=== PATIENT | female | born 1960 | race Caucasian/White ===

== ENCOUNTER 2017-04-22 08:00 | Day surgery (SDC) | payer BC ==
[~2017-04-22 08:00] MED LIST: Lactated Ringers 1,000 ML IV SCH; Midazolam 1 MG/ML 2 ML SDV ONE; Propofol 200 MG/20 ML SDV ONE; Sodium Chloride 0.9% 10 ML Syringe FLUSH PRN; Sodium Chloride 0.9% 2.5 ML Syringe FLUSH PRN
--- NOTE | 2017-04-22 08:28 | PCM.PREANE ---
Preanesthetic Assessment - Anesthesia/Transfusion/Family Hx Anesthesia History: Prior Anesthesia Without Reaction Other Type of Anesthesia Reaction Comment: Denies any known problem with anesthesia in the past. Family History of Anesthesia Reaction: No Transfusion History: No Prior Transfusion(s) Intubation History: Unknown - Review of Systems General: No Symptoms Pulmonary: No Symptoms Cardiovascular: No Symptoms Gastrointestinal: No Symptoms, Other (h/o colon cancer) Neurological: No Symptoms, Change in Speech - Physical Assessment O2 Sat by Pulse Oximetry: 98 Respiratory Rate: 16 Vital Signs: Last Vital Signs Temp 36.6 C 04/22/17 08:06 Pulse 88 04/22/17 08:06 Resp 16 04/22/17 08:06 BP 144/63 H 04/22/17 08:06 Pulse Ox 98 04/22/17 08:06 Height: 1.7 m Weight: 111.584 kg ASA Class: 2 Mental Status: Alert & Oriented x3 Airway Class: Mallampati = 2 Dentition: Reports: Normal Dentition (protruding teeth) Thyro-Mental Finger Breadths: 2 Mouth Opening Finger Breadths: 3 ROM/Head Extension: Full Lungs: Clear to Auscultation, Normal Respiratory Effort Cardiovascular: Regular Rate, Regular Rhythm - Allergies Allergies/Adverse Reactions: Allergies Allergy/AdvReac Type Severity Reaction Status Date / Time Sulfa (Sulfonamide Allergy Anaphylactic Verified 04/20/17 08:49 Antibiotics) Shock - Blood Blood Available: No - Anesthesia Plan Pre-Op Medication Ordered: None - Acknowledgements Anesthesia Type Planned: MAC Pt an Appropriate Candidate for the Planned Anesthesia: Yes Alternatives and Risks of Anesthesia Discussed w Pt/Guardian: Yes Pt/Guardian Understands and Agrees with Anesthesia Plan: Yes PreAnesthesia Questionnaire - Past Health History Medical/Surgical History: Denies Medical/Surgical History HEENT History: Reports: Impaired Vision, Other (See Below) Other HEENT History: wears glasses for driving Cardiovascular History: Reports: None Respiratory History: Reports: None Gastrointestinal History: Reports: Other (See Below) Other Gastrointestinal History: hx of colon cancer '11 with colon resection and primary anastomosis Genitourinary History: Reports: None 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: , Other (See Below) Other OB/BYN History: hx of Endometrial Cancer 1A (s/p vaginal hysterectomy) Musculoskeletal History: Reports: Fracture Other Musculoskeletal History: fx left wrist, ?foot Neurological History: Reports: None, Other (See Below) (h/o migraines) Psychiatric History: Reports: None, Other (See Below) (h/o anxiety/depression) Endocrine/Metabolic History: Reports: Obesity/BMI 30+ (BMI 38.5) Hematologic History: Reports: Anemia, Other (See Below) Other Hematologic History: states was diagnosed "yrs ago with mild thrombocytopenia" Immunologic History: Reports: None Oncologic (Cancer) History: Reports: Colon, Uterine Dermatologic History: Reports: None - Past Surgical History Head Surgeries/Procedures: Reports: None HEENT Surgical History: Reports: None Cardiovascular Surgical History: Reports: None Respiratory Surgical History: Reports: None GI Surgical History: Reports: Appendectomy, Colon (resection), Colonoscopy ( multiple), Hernia, Inguinal Other GI Surgeries/Procedures: Partial Colectomy Female Surgical History: Reports: Section (x3), Hysterectomy Endocrine Surgical History: Reports: None Neurological Surgical History: Reports: None Musculoskeletal Surgical History: Reports: None Oncologic Surgical History: Reports: Other (See Below) Other Oncologic Surgeries/Procedures: Partial Colectomy, LAVH Dermatological Surgical History: Reports: None - SUBSTANCE USE Smoking Status *Q: Former Smoker Days Per Week of Alcohol Use: 1 Number of Drinks Per Day: 3 Total Drinks Per Week: 3 Recreational Drug Use History: No - HOME MEDS Home Medications: Home Meds Psyllium Husk [Fiber] 12 gram PO DAILY 12/12/13 [History] Cholecalciferol (Vitamin D3) [Vitamin D3] 2 tab PO DAILY 10/12/14 [History] Multivitamin [Multivitamins] 1 tab PO DAILY 11/30/14 [History] Polyethylene Glycol 3350 [MiraLAX] 1 dose PO DAILY 11/12/15 [History] Ascorbic Acid [Vitamin C] 1,000 mg PO BID 04/20/17 [History] Calcium Carb/Magnesium Oxid/D3 [Calcium Magnesium + D] 1 tab PO DAILY 04/20/17 [ History] L.acidoph,Paracasei, B.lactis [Probiotic] 1 tab PO DAILY 04/20/17 [History] Multivitamin with Minerals [Hair, Skin and Nails] 1 tab PO DAILY 04/20/17 [ History] Potassium Gluconate [Potassium] 1 tab PO DAILY 04/20/17 [History] Vitamin B Complex 1 tab PO BID 04/20/17 [History] - CURRENT (IN HOUSE) MEDS Current Meds: Current Medications Lactated Ringer's (Ringers, Lactated) 1,000 mls @ 125 mls/hr IV ASDIRECTED TALI Last Admin: 04/22/17 08:11 Dose: 125 mls/hr Sodium Chloride (Saline Flush) 10 ml FLUSH ASDIRECTED PRN PRN Reason: Keep Vein Open Sodium Chloride (Saline Flush) 2.5 ml FLUSH ASDIRECTED PRN PRN Reason: Keep Vein Open Discontinued Medications Lidocaine HCl (Xylocaine-Mpf 1%) Confirm Administered Dose 5 ml .ROUTE .STK-MED ONE Stop: 04/22/17 07:17 Midazolam HCl (Versed 1 Mg/Ml) Confirm Administered Dose 2 mg .ROUTE .STK-MED ONE Stop: 04/22/17 07:17 Propofol (Diprivan 20 Ml) Confirm Administered Dose 400 mg .ROUTE .STK-MED ONE Stop: 04/22/17 07:17
--- NOTE | 2017-04-22 10:09 | PCM.POSTAN ---
POST ANESTHESIA ASSESSMENT - MENTAL STATUS Mental Status: Alert, Oriented - RESPIRATORY Respiratory Status: Respiratory Rate WNL, Airway Patent, O2 Saturation Stable - CARDIOVASCULAR CV Status: Pulse Rate WNL - GASTROINTESTINAL GI Status: No Symptoms - PAIN Pain Score: 0 - POST OP HYDRATION Hydration Status: Adequate & Stable - OBSERVATIONS Free Text/Narrative:: no anesthesia problems
[2017-04-22 10:23] VITALS: BP 115/61
--- NOTE | 2017-04-22 10:33 | PCM.OPNOTE ---
- General Post-Op/Procedure Note Date of Surgery/Procedure: 04/22/17 Operative Procedure(s): Colonoscopy Findings: Normal appearing anastamotic line. No evidence of polyps or masses. Pre Op Diagnosis: History of colon cancer Post-Op Diagnosis: same Anesthesia Technique: MAC Primary Surgeon: Jazmin Jones Condition: Good Free Text/Narrative:: Intake & Output 04/21/17 04/22/17 04/22/17 22:59 06:59 14:59 Intake Total 400 Balance 400
--- NOTE | 2017-04-22 19:01 | OR ---
SURGEON: JAZMIN JONES MD DATE OF PROCEDURE: 04/22/2017 PREOPERATIVE DIAGNOSIS: History of colon cancer. POSTOPERATIVE DIAGNOSIS: History of colon cancer. PROCEDURE PERFORMED: Diagnostic colonoscopy. ENDOSCOPIST: Dr. Jazmin Jones. INSTRUMENT USED: Olympus colonoscope. EXTENT OF EXAM: To the cecum. PREPARATION: Fair. LIMITATIONS: None. INDICATION FOR EXAMINATION: The patient is a 57-year-old female, who presents for repeat colonoscopy. She has a history of colon cancer with a genetic screening test that showed a gene that increases the risk for colon cancer. Because of this, she has had yearly colonoscopy since her original surgery. The patient and I discussed the procedure as well as expected perioperative course. We discussed the risks, including bleeding, infection, damage to surrounding structures, including perforation. The patient has had multiple biopsies done of the anastomotic site just to ensure that there has been no recurrence. We discussed performing this again. The patient verbalized understanding and wishes to proceed. PROCEDURE IN DETAIL: The patient was brought to the endoscopy suite and placed in the left lateral decubitus position. A time-out was completed verifying the patient's name, age, date of , allergies, and procedure to be performed. Monitored anesthesia care was induced and continuous oxygen was provided via nasal cannula throughout the procedure. After adequate sedation was achieved, the digital rectal exam was performed. This examination was within normal limits. A well lubricated colonoscope was inserted into the rectum and advanced under direct visualization to the level of the cecum. The cecum was identified by both visual and anatomic landmarks. A photograph was taken of the cecal cap, however, I was unable to retroflex the scope within the cecum. The scope was then straightened out and fully withdrawn while examining the color, texture, anatomy, and integrity of the mucosa from the cecum to the anal canal. The patient had no evidence of polyps. Her anastomotic line appeared well healed with no evidence of recurrence. A biopsy were taken of the anastomotic line to ensure that there was normal tissue. The scope was then brought into the rectum and retroflexed to allow visualization of the anal canal opening. This appeared normal and a photograph was taken. The scope was then straightened out and removed from the patient. The cecum to anus time was 10 minutes. The patient was taken to the PACU in stable condition. ENDOSCOPIC DIAGNOSIS: Normal colonoscopy. RECOMMENDATION: Follow up in clinic in 2 weeks. HUGO PAT /[id number]
== END 2017-04-22 10:38 | disposition home or self-care (01) ==
LOC: MW.SDS 08:00
PROVIDERS: ATTEND Surgery
PROC: 0DJD8ZZ Inspection of Lower Intestinal Tract, Via Natural or Artificial Opening Endoscopic (ICD-10-PCS; principal; 2017-04-22)
DX: Z12.11 Encounter for screening for malignant neoplasm of colon (principal); Z85.038 Personal history of other malignant neoplasm of large intestine; F45.8 Other somatoform disorders; L43.9 Lichen planus, unspecified; Z88.2 Allergy status to sulfonamides; Z79.899 Other long term (current) drug therapy; D64.9 Anemia, unspecified; F41.9 Anxiety disorder, unspecified; F32.9 Major depressive disorder, single episode, unspecified; Z90.49 Acquired absence of other specified parts of digestive tract; Z90.710 Acquired absence of both cervix and uterus; Z98.890 Other specified postprocedural states; Z87.891 Personal history of nicotine dependence
CPT/HCPCS: 45378; J2250; J7120; 88305; J2704

== ENCOUNTER 2018-02-10 14:10 | Emergency (ER) | payer BC ==
[2018-02-10 14:46] VITALS: BP 147/72
--- NOTE | 2018-02-10 14:53 | EDM.PDOC ---
ED HPI GENERAL MEDICAL PROBLEM - General Chief Complaint: Lower Extremity Injury/Pain Stated Complaint: RT LEG PAIN Time Seen by Provider: 02/10/18 14:15 Source of Information: Reports: Patient History Limitations: Reports: No Limitations - History of Present Illness INITIAL COMMENTS - FREE TEXT/NARRATIVE: HISTORY AND PHYSICAL: History of present illness: Patient is a 58-year-old female who presents to the emergency room today with complaints of right leg pain. She states that approximately one week ago she had someone spilled coffee on her and she bent over to reach for the cup with a flexed/straight leg and had immediate pain to the right posterior distal hamstring. Since that time she has had pins and needles and burning sensation when she engages the hamstring. She states she told some friends of this and they suggested her calm to the emergency room for evaluation. She did attempt to get in with her primary care provider but was unable to get in until tomorrow. She denies any numbness or tingling to the distal extremity. Denies any localized area of erythema or soft tissue swelling. She is ambulatory. States that pressure on the site or engaging the hamstring is when she feels the pain. Review of systems: As per history of present illness and below otherwise all systems reviewed and negative. Past medical history: As per history of present illness and as reviewed below otherwise noncontributory. Surgical history: As per history of present illness and as reviewed below otherwise noncontributory. Social history: No reported history of drug or alcohol abuse. Family history: As per history of present illness and as reviewed below otherwise noncontributory. Physical exam: General: HEENT: Atraumatic, normocephalic, pupils equal and reactive bilaterally, negative for conjunctival pallor or scleral icterus, mucous membranes moist, throat clear, neck supple, nontender, trachea midline. No drooling or trismus noted. No meningeal signs Lungs: Clear to auscultation, breath sounds equal bilaterally, chest nontender. Heart: S1S2, regular rate and rhythm without overt murmur Abdomen: Soft, nondistended, nontender. Negative for masses or hepatosplenomegaly. Negative for costovertebral tenderness. Pelvis: Stable nontender. Genitourinary: Deferred. Rectal: Deferred. Skin: Intact, warm, dry. No lesions or rashes noted. Extremities: Atraumatic, negative for cords or calf pain. Neurovascular unremarkable. Neuro: Awake, alert, oriented. Cranial nerves II through XII unremarkable. Cerebellum unremarkable. Motor and sensory unremarkable throughout. Exam nonfocal. Notes: Ultrasound shows no evidence of a DVT. There is likely a Zarate cyst noted upon examination. We'll provide the patient with an Raza wrap and offered crutches. Her describing the involvement of the hamstring when activated sounds like she may have a partial muscle tear or strain. This information was shared with the patient. She states she did take some leftover diclofenac which seemed to help her discomfort. Diclofenac 75 mg twice a day has been prescribed. We discussed appropriate follow-up with the orthopedic provider for further evaluation and management. She is agreeable to plan of care. Denies any further questions or concerns at this time. Diagnostics: Right lower extremity Therapeutics: Raza wrap, crutches Impression: Zarate cyst, right Muscle Strain, right hamstring Plan: 1. No evidence of DVT. Small zarate cyst behind the right knee (use raza wrap as directed) 2. Tylenol as needed for pain and discomfort. A prescription for diclofenac has been given to you. With food and do not take any additional NSAID's such as ibuprofen or Aleve with this medication. 3. He is follow-up with the orthopedic provider. Return to the ED as needed and as discussed. Definitive disposition and diagnosis as appropriate pending reevaluation and review of above. Right Upper Posterior Leg Pain Score (Numeric/FACES): 6 - Related Data Allergies Allergy/AdvReac Type Severity Reaction Status Date / Time Sulfa (Sulfonamide Allergy Anaphylactic Verified 02/10/18 14:41 Antibiotics) Shock Home Meds: Home Meds Psyllium Husk [Fiber] 12 gram PO DAILY 12/12/13 [History] Cholecalciferol (Vitamin D3) [Vitamin D3] 2 tab PO DAILY 10/12/14 [History] Multivitamin [Multivitamins] 1 tab PO DAILY 11/30/14 [History] Polyethylene Glycol 3350 [MiraLAX] 1 dose PO DAILY 11/12/15 [History] Ascorbic Acid [Vitamin C] 1,000 mg PO BID 04/20/17 [History] Calcium Carb/Magnesium Oxid/D3 [Calcium Magnesium + D] 1 tab PO DAILY 04/20/17 [ History] L.acidoph,Paracasei, B.lactis [Probiotic] 1 tab PO DAILY 04/20/17 [History] Multivitamin with Minerals [Hair, Skin and Nails] 1 tab PO DAILY 04/20/17 [ History] Potassium Gluconate [Potassium] 1 tab PO DAILY 04/20/17 [History] Vitamin B Complex 1 tab PO BID 04/20/17 [History] Diclofenac Sodium [Vopac Mds] 1 tab PO BID 02/10/18 [History] Past Medical History - Past Health History Medical/Surgical History: Denies Medical/Surgical History HEENT History: Reports: Impaired Vision, Other (See Below) Other HEENT History: wears glasses for driving Cardiovascular History: Reports: None Respiratory History: Reports: None Gastrointestinal History: Reports: Other (See Below) Other Gastrointestinal History: hx of colon cancer '11 with colon resection and primary anastomosis Genitourinary History: Reports: None 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: 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: , Other (See Below) Other 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: hx of Endometrial Cancer 1A (s/p vaginal hysterectomy) Musculoskeletal History: Reports: Fracture Other Musculoskeletal History: fx left wrist, ?foot Neurological History: Reports: None, Other (See Below) Psychiatric History: Reports: None, Other (See Below) Endocrine/Metabolic History: Reports: Obesity/BMI 30+ Hematologic History: Reports: Anemia, Other (See Below) Other Hematologic History: states was diagnosed "yrs ago with mild thrombocytopenia" Immunologic History: Reports: None Oncologic (Cancer) History: Reports: Colon, Uterine Dermatologic History: Reports: None - Infectious Disease History Infectious Disease History: Reports: Chicken Pox - Past Surgical History Head Surgeries/Procedures: Reports: None HEENT Surgical History: Reports: None Cardiovascular Surgical History: Reports: None Respiratory Surgical History: Reports: None GI Surgical History: Reports: Appendectomy, Colon, Colonoscopy, Hernia, Inguinal Other GI Surgeries/Procedures: Partial Colectomy Female Surgical History: Reports: Section, Hysterectomy Endocrine Surgical History: Reports: None Neurological Surgical History: Reports: None Musculoskeletal Surgical History: Reports: None Oncologic Surgical History: Reports: Other (See Below) Other Oncologic Surgeries/Procedures: Partial Colectomy, LAVH Dermatological Surgical History: Reports: None Social & Family History - Family History Family Medical History: Noncontributory - Tobacco Use Smoking Status *Q: Former Smoker Used Tobacco, but Quit: Yes Month/Year Tobacco Last Used: 08/02/1996 - Caffeine Use Caffeine Use: Reports: None - Recreational Drug Use Recreational Drug Use: No Review of Systems - Review of Systems Review Of Systems: ROS reveals no pertinent complaints other than HPI. ED EXAM, GENERAL - Physical Exam Exam: See Below (See dictation) Course - Vital Signs Last Recorded V/S: Last Vital Signs Temp 97.0 F 02/10/18 14:44 Pulse 75 02/10/18 14:44 Resp 18 02/10/18 14:44 BP 147/72 H 02/10/18 14:44 Pulse Ox 96 02/10/18 14:44 - Orders/Labs/Meds Orders: Active Orders 24 hr Category Date Time Status DME for Discharge [COMM] Stat Oth 02/10/18 17:05 Ordered Departure - Departure Time of Disposition: 17:03 Disposition: Home, Self-Care 01 Clinical Impression: Muscle strain Zarate's cyst of knee Qualifiers: Laterality: right Qualified Code(s): M71.21 - Synovial cyst of popliteal space [Zarate], right knee - Discharge Information Instructions: Muscle Strain, [id number], Zarate Cyst Referrals: Terrance Pinon MD [Primary Care Provider] - Forms: ED Department Discharge Additional Instructions: The following information is given to patients seen in the emergency department who are being discharged to home. This information is to outline your options for follow-up care. We provide all patients seen in our emergency department with a follow-up referral. The need for follow-up, as well as the timing and circumstances, are variable depending upon the specifics of your emergency department visit. If you don't have a primary care physician on staff, we will provide you with a referral. We always advise you to contact your personal physician following an emergency department visit to inform them of the circumstance of the visit and for follow-up with them and/or the need for any referrals to a consulting specialist. The emergency department will also refer you to a specialist when appropriate. This referral assures that you have the opportunity for follow-up care with a specialist. All of these measure are taken in an effort to provide you with optimal care, which includes your follow-up. Under all circumstances we always encourage you to contact your private physician who remains a resource for coordinating your care. When calling for follow-up care, please make the office aware that this follow-up is from your recent emergency room visit. If for any reason you are refused follow-up, please contact the [facility] Emergency Department at and asked to speak to the emergency department charge nurse. [facility] [address] [place] [id number] 1. No evidence of DVT. Small zarate cyst behind the right knee (use raza wrap as directed), supportive care measures. 2. Tylenol as needed for pain and discomfort. A prescription for diclofenac has been given to you. With food and do not take any additional NSAID's such as ibuprofen or Aleve with this medication. 3. He is follow-up with the orthopedic provider. Return to the ED as needed and as discussed. - My Orders Last 24 Hours: My Active Orders 02/10/18 17:05 DME for Discharge [COMM] Stat - Assessment/Plan Last 24 Hours: My Active Orders 02/10/18 17:05 DME for Discharge [COMM] Stat
--- NOTE | 2018-02-10 15:49 | US ---
ULTRASOUND EXAMINATION OF the right lower extremity WITH DOPPLER HISTORY: Pain FINDINGS: Examination of the right leg was performed from the groin to the calf region. All visualized segment s including common femoral, proximal greater saphenous, superficial femoral, popliteal and calf veins appear patent with good compressibility and augmentation. There is no evidence of a deep vein throm bosis. Small 2.5 cm fluid collection within the popliteal fossa likely a Zarate's cyst. IMPRESSION: No evidence of a DVT.
== END 2018-02-10 17:10 | disposition home or self-care (01) ==
LOC: MW.ED 14:10
DX: S76.311A Strain of muscle, fascia and tendon of the posterior muscle group at thigh level, right thigh, initial encounter (principal); M71.21 Synovial cyst of popliteal space [Baker], right knee; Z88.2 Allergy status to sulfonamides; Z79.899 Other long term (current) drug therapy; Z87.891 Personal history of nicotine dependence; X58.XXXA Exposure to other specified factors, initial encounter
CPT/HCPCS: 93971-26-RT; 93971-RT; 99283-25

== ENCOUNTER 2018-11-21 17:22 | Emergency (ER) | payer BC ==
[2018-11-21] MEDS ORDERED: Ondansetron 4 MG/2 ML SDV IM ONE (17:42)
[2018-11-21] MEDS ORDERED: Morphine 4 MG/ML Syringe IM ONE (17:42)
--- NOTE | 2018-11-21 17:47 | EDM.PDOC ---
ED HPI GENERAL MEDICAL PROBLEM - General Chief Complaint: Upper Extremity Injury/Pain Stated Complaint: WRIST INJURY Time Seen by Provider: 11/21/18 17:34 - History of Present Illness INITIAL COMMENTS - FREE TEXT/NARRATIVE: HISTORY AND PHYSICAL: History of present illness: Patient 50-year-old white female presents status post fall she injured her left wrist she presents here with pain and obvious deformity and wrist fracture. There is no other trauma or concern she denies any other complaints Review of systems: As per history of present illness and below otherwise all systems reviewed and negative. Past medical history: As per history of present illness and as reviewed below otherwise noncontributory. Surgical history: As per history of present illness and as reviewed below otherwise noncontributory. Social history: No reported history of drug or alcohol abuse. Family history: As per history of present illness and as reviewed below otherwise noncontributory. Physical exam: HEENT: Atraumatic, normocephalic, pupils reactive, negative for conjunctival pallor or scleral icterus, mucous membranes moist, throat clear, neck supple, nontender, trachea midline. Lungs: Clear to auscultation, breath sounds equal bilaterally, chest nontender. Heart: S1S2, regular, negative for clicks, rubs, or JVD. Abdomen: Soft, nondistended, nontender. Negative for masses or hepatosplenomegaly. Negative for costovertebral tenderness. Pelvis: Stable nontender. Genitourinary: Deferred. Rectal: Deferred. 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 Neuro: Awake, alert, oriented. Cranial nerves II through XII unremarkable. Cerebellum unremarkable. Motor and sensory unremarkable throughout. Exam nonfocal. Diagnostics: X-ray left wrist Therapeutics: Morphine sulfate 4 mg IM and Zofran 4 mg IM long-arm posterior mold sling Impression: #1 acute left wrist injury (radius fracture) Definitive disposition and diagnosis as appropriate pending reevaluation and review of above. left wrist Pain Score (Numeric/FACES): 9 - Related Data Allergies Allergy/AdvReac Type Severity Reaction Status Date / Time morphine Allergy Nausea and Verified 11/21/18 17:40 Vomiting Sulfa (Sulfonamide Allergy Anaphylactic Verified 11/21/18 17:40 Antibiotics) Shock Home Meds: Home Meds Cholecalciferol (Vitamin D3) [Vitamin D3] 2,000 unit PO DAILY 10/12/14 [History] Multivitamin [Multivitamins] 1 tab PO DAILY 11/30/14 [History] Polyethylene Glycol 3350 [MiraLAX] 1 tsp PO DAILY 11/12/15 [History] Ascorbic Acid [Vitamin C] 1,000 mg PO DAILY 04/20/17 [History] L.acidoph,Paracasei, B.lactis [Probiotic] 1 tab PO DAILY 04/20/17 [History] Multivitamin with Minerals [Hair, Skin and Nails] 1 tab PO DAILY 04/20/17 [ History] Vitamin B Complex 1 tab PO BID 04/20/17 [History] Past Medical History - Past Health History Medical/Surgical History: Denies Medical/Surgical History HEENT History: Reports: Hard of Hearing, Impaired Vision, Other (See Below) Other HEENT History: wears glasses for driving, 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 Cardiovascular History: Reports: None Respiratory History: Reports: None Gastrointestinal History: Reports: Other (See Below) Other Gastrointestinal History: hx of colon cancer '11 with colon resection and primary anastomosis Genitourinary History: Reports: None MEDIA TECHNICIAN 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: Reports: , Other (See Below) Other MEDIA TECHNICIAN History: hx of Endometrial Cancer 1A (s/p vaginal hysterectomy) Musculoskeletal History: Reports: Arthritis, Fracture Other Musculoskeletal History: fx left wrist, ?foot Neurological History: Reports: None, Other (See Below) Other Neuro History: hx of meningitis as a child Psychiatric History: Reports: None Endocrine/Metabolic History: Reports: Obesity/BMI 30+ Hematologic History: Reports: Anemia, Other (See Below) Other Hematologic History: states was diagnosed "yrs ago with mild thrombocytopenia" Immunologic History: Reports: None Oncologic (Cancer) History: Reports: Colon, Uterine Dermatologic History: Reports: None - Infectious Disease History Infectious Disease History: Reports: Chicken Pox - Past Surgical History Head Surgeries/Procedures: Reports: None HEENT Surgical History: Reports: None Cardiovascular Surgical History: Reports: None Respiratory Surgical History: Reports: None GI Surgical History: Reports: Appendectomy, Colon, Colonoscopy, Hernia, Inguinal Other GI Surgeries/Procedures: Partial Colectomy Female Surgical History: Reports: Section, Hysterectomy Endocrine Surgical History: Reports: None Neurological Surgical History: Reports: None Musculoskeletal Surgical History: Reports: None Oncologic Surgical History: Reports: Other (See Below) Other Oncologic Surgeries/Procedures: Partial Colectomy, LAVH Dermatological Surgical History: Reports: None Social & Family History - Family History Family Medical History: Noncontributory - Tobacco Use Smoking Status *Q: Former Smoker Used Tobacco, but Quit: Yes Month/Year Tobacco Last Used: quit 19 years ago - Caffeine Use Caffeine Use: Reports: Coffee, Soda - Alcohol Use Days Per Week of Alcohol Use: 1 Number of Drinks Per Day: 3 Total Drinks Per Week: 3 - Recreational Drug Use Recreational Drug Use: No Review of Systems - Review of Systems Review Of Systems: ROS reveals no pertinent complaints other than HPI. ED EXAM, GENERAL - Physical Exam Exam: See Below (See dictation) Course - Vital Signs Last Recorded V/S: Last Vital Signs Temp 35.9 C 11/21/18 17:38 Pulse 67 11/21/18 17:38 Resp 20 11/21/18 17:38 BP 163/55 H 11/21/18 17:38 Pulse Ox 99 11/21/18 17:38 - Orders/Labs/Meds Orders: Active Orders 24 hr Category Date Time Status Wrist Comp Min 3V Lt [CR] Stat Exams 11/21/18 17:42 Taken Meds: Medications Discontinued Medications Generic Name Dose Route Start Last Admin Trade Name Lilia PRN Reason Stop Dose Admin Morphine Sulfate 4 mg 11/21/18 17:42 11/21/18 17:52 Morphine IM 11/21/18 17:43 4 mg ONETIME ONE Administration Ondansetron HCl 4 mg 11/21/18 17:42 11/21/18 17:52 Zofran IM 11/21/18 17:43 4 mg ONETIME ONE Administration Departure - Departure Time of Disposition: 18:31 Disposition: Home, Self-Care 01 Condition: Good Clinical Impression: Wrist fracture - Discharge Information Referrals: PCP,Unknown [Primary Care Provider] - Forms: ED Department Discharge Additional Instructions: The following information is given to patients seen in the emergency department who are being discharged to home. This information is to outline your options for follow-up care. We provide all patients seen in our emergency department with a follow-up referral. The need for follow-up, as well as the timing and circumstances, are variable depending upon the specifics of your emergency department visit. If you don't have a primary care physician on staff, we will provide you with a referral. We always advise you to contact your personal physician following an emergency department visit to inform them of the circumstance of the visit and for follow-up with them and/or the need for any referrals to a consulting specialist. The emergency department will also refer you to a specialist when appropriate. This referral assures that you have the opportunity for followup care with a specialist. All of these measure are taken in an effort to provide you with optimal care, which includes your followup. Under all circumstances we always encourage you to contact your private physician who remains a resource for coordinating your care. When calling for followup care, please make the office aware that this follow-up is from your recent emergency room visit. If for any reason you are refused follow-up, please contact the [facility] emergency department at and asked to speak to the emergency department charge nurse. [facility] [address], [address] [place] [address] Follow-up orthopedic surgery above 9 AM tomorrow as discussed posterior mold sling as directed hydrocodone as prescribed return as needed as discussed - My Orders Last 24 Hours: My Active Orders 11/21/18 17:42 Wrist Comp Min 3V Lt [CR] Stat - Assessment/Plan Last 24 Hours: My Active Orders 11/21/18 17:42 Wrist Comp Min 3V Lt [CR] Stat
[2018-11-21 18:57] VITALS: BP 117/73
--- NOTE | 2018-11-21 19:09 | CR ---
HISTORY: Fall. TECHNIQUE: Three views of the left wrist. COMPARISON: No prior. FINDINGS: There is an acute dorsally impacted distal radial fracture with resultant dorsal tilt of the distal articular surface. There is an ossicle adjacent to the ulnar styloid of uncertain chronicity. No acute scaphoid fracture. Mild 1st CMC joint degenerative changes. IMPRESSION: 1. Acute dorsally impacted distal left radial fracture with dorsal tilt of distal articular surface. 2. Ossicle adjacent to the ulnar styloid of uncertain chronicity. Dictated by Baljeet Rea MD @ 11/21/2018 7:08:26 PM Dictated by: Baljeet Rea MD @ 11/21/2018 19:08:30 (Electronically Signed)
== END 2018-11-21 18:57 | disposition home or self-care (01) ==
LOC: MW.ED 17:22
DX: S52.502A Unspecified fracture of the lower end of left radius, initial encounter for closed fracture (principal); Z88.5 Allergy status to narcotic agent; Z88.2 Allergy status to sulfonamides; Z79.899 Other long term (current) drug therapy; Z87.891 Personal history of nicotine dependence; W18.30XA Fall on same level, unspecified, initial encounter
CPT/HCPCS: 29105; 73110; 96372; 99283; J2270; J2405

== ENCOUNTER 2019-09-12 08:37 | Day surgery (SDC) | payer BC ==
[~2019-09-12 08:37] MED LIST changes: +Lidocaine 2% 5 ML SDV ONE; -Midazolam 1 MG/ML 2 ML SDV ONE; +Sodium Chloride 0.9% 10 ML SDV IV PRN; +fentaNYL 100 MCG/2 ML SDV ONE
--- NOTE | 2019-09-12 09:45 | PCM.PREANE ---
Preanesthetic Assessment - Anesthesia/Transfusion/Family Hx Anesthesia History: Prior Anesthesia Without Reaction Other Type of Anesthesia Reaction Comment: Denies any known problem with anesthesia in the past. Family History of Anesthesia Reaction: No Transfusion History: No Prior Transfusion(s) Intubation History: Unknown - Review of Systems General: No Symptoms Pulmonary: No Symptoms Cardiovascular: No Symptoms Gastrointestinal: No Symptoms, Other (h/o sigmoid colon cancer) Neurological: No Symptoms Other: Reports: None - Physical Assessment Height: 5 ft 7 in Weight: 127.913 kg ASA Class: 2 Mental Status: Alert & Oriented x3 Airway Class: Mallampati = 2 Dentition: Reports: Normal Dentition Thyro-Mental Finger Breadths: 3 Mouth Opening Finger Breadths: 2 ROM/Head Extension: Full Lungs: Clear to Auscultation, Normal Respiratory Effort Cardiovascular: Regular Rate, Regular Rhythm - Allergies Allergies/Adverse Reactions: Allergies Allergy/AdvReac Type Severity Reaction Status Date / Time morphine Allergy Nausea and Verified 09/06/19 11:28 Vomiting Sulfa (Sulfonamide Allergy Anaphylactic Verified 09/06/19 11:28 Antibiotics) Shock - Blood Blood Available: No - Anesthesia Plan Pre-Op Medication Ordered: None - Acknowledgements Anesthesia Type Planned: MAC Pt an Appropriate Candidate for the Planned Anesthesia: Yes Alternatives and Risks of Anesthesia Discussed w Pt/Guardian: Yes Pt/Guardian Understands and Agrees with Anesthesia Plan: Yes PreAnesthesia Questionnaire - Past Health History Medical/Surgical History: Denies Medical/Surgical History HEENT History: Reports: Hard of Hearing, Impaired Vision, Other (See Below) Other HEENT History: wears glasses for driving, 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 Cardiovascular History: Reports: None Respiratory History: Reports: None Gastrointestinal History: Reports: Chronic Constipation, Other (See Below) Other Gastrointestinal History: hx of colon cancer '11 with colon resection and primary anastomosis Genitourinary History: Reports: None 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: , Other (See Below) Other OB/BYN History: hx of Endometrial Cancer Musculoskeletal History: Reports: Arthritis, Fracture Other Musculoskeletal History: fx left wrist, Neurological History: Reports: Other (See Below) Other Neuro History: hx of meningitis as a child Psychiatric History: Reports: Anxiety, Depression Endocrine/Metabolic History: Reports: Obesity/BMI 30+ (BMI 44.2 BMI 44.2) Hematologic History: Reports: Anemia, Other (See Below) Other Hematologic History: states was diagnosed "yrs ago with mild thrombocytopenia" Immunologic History: Reports: None Oncologic (Cancer) History: Reports: Colon, Uterine Dermatologic History: Reports: None - Infectious Disease History Infectious Disease History: Reports: Chicken Pox - Past Surgical History Head Surgeries/Procedures: Reports: None HEENT Surgical History: Reports: Oral Surgery Cardiovascular Surgical History: Reports: None Respiratory Surgical History: Reports: None GI Surgical History: Reports: Appendectomy, Colon (sigmoid colon resection for cancer), Colonoscopy (multiple (more than 5)), Hernia, Inguinal Other GI Surgeries/Procedures: Partial Colectomy Female Surgical History: Reports: Section (x3), Hysterectomy Endocrine Surgical History: Reports: None Neurological Surgical History: Reports: None Musculoskeletal Surgical History: Reports: None Oncologic Surgical History: Reports: Other (See Below) Other Oncologic Surgeries/Procedures: Partial Colectomy, LAVH Dermatological Surgical History: Reports: None - SUBSTANCE USE Smoking Status *Q: Former Smoker Tobacco Use Within Last Twelve Months: No - HOME MEDS Home Medications: Home Meds Polyethylene Glycol 3350 [MiraLAX] 1 tsp PO DAILY 11/12/15 [History] Acetaminophen [Tylenol Extra Strength] 2 tab PO ASDIRECTED PRN 09/06/19 [History ] Cannabidiol (Cbd) Extract [CBD Oil] 1 dose PO BID 09/06/19 [History] Naproxen Sodium [Aleve] 1 tab PO ASDIRECTED PRN 09/06/19 [History] - CURRENT (IN HOUSE) MEDS Current Meds: Current Medications Lactated Ringer's (Ringers, Lactated) 1,000 mls @ 125 mls/hr IV ASDIRECTED TALI Sodium Chloride (Saline Flush) 10 ml FLUSH ASDIRECTED PRN PRN Reason: Keep Vein Open Sodium Chloride (Saline Flush) 2.5 ml FLUSH ASDIRECTED PRN PRN Reason: Keep Vein Open Sodium Chloride (Saline Flush) 10 ml FLUSH ASDIRECTED PRN PRN Reason: Keep Vein Open Sodium Chloride (Saline Flush) 2.5 ml FLUSH ASDIRECTED PRN PRN Reason: Keep Vein Open Sodium Chloride (Normal Saline) 10 ml IV ASDIRECTED PRN PRN Reason: IV Use Discontinued Medications Fentanyl (Sublimaze) Confirm Administered Dose 100 mcg .ROUTE .STK-MED ONE Stop: 09/12/19 07:22 Lidocaine (Xylocaine-Mpf 2%) Confirm Administered Dose 5 ml .ROUTE .STK-MED ONE Stop: 09/12/19 07:21 Propofol (Diprivan 20 Ml) Confirm Administered Dose 400 mg .ROUTE .STK-MED ONE Stop: 09/12/19 07:22
[2019-09-12] MEDS ORDERED: Propofol 200 MG/20 ML SDV ONE (10:34)
--- NOTE | 2019-09-12 10:59 | PCM.OPNOTE ---
- General Post-Op/Procedure Note Date of Surgery/Procedure: 09/12/19 Operative Procedure(s): Diagnostic colonoscopy Findings: Normal colonoscopy. Healthy appearing staple line. Pre Op Diagnosis: History of rectal cancer Post-Op Diagnosis: same Anesthesia Technique: MAC Primary Surgeon: Jazmin Jones Condition: Good
--- NOTE | 2019-09-12 11:26 | PCM.POSTAN ---
POST ANESTHESIA ASSESSMENT - MENTAL STATUS Mental Status: Alert, Oriented - VITAL SIGNS Vital Signs: Last Vital Signs Temp 37 C 09/12/19 10:49 Pulse 7 L 09/12/19 10:59 Resp 16 09/12/19 10:59 BP 105/56 L 09/12/19 10:59 Pulse Ox 97 09/12/19 10:59 - RESPIRATORY Respiratory Status: Respiratory Rate WNL, Airway Patent, O2 Saturation Stable - CARDIOVASCULAR CV Status: Pulse Rate WNL, Blood Pressure Stable - GASTROINTESTINAL GI Status: No Symptoms - PAIN Pain Score: 0 - POST OP HYDRATION Hydration Status: Adequate & Stable - OBSERVATIONS Free Text/Narrative:: No anesthesia problems
--- NOTE | 2019-09-12 11:27 | PCM48HPAN ---
Post Anesthesia Note - EVALUATION WITHIN 48HRS OF ANESTHETIC Vital Signs in Normal Range: Yes Patient Participated in Evaluation: Yes Respiratory Function Stable: Yes Airway Patent: Yes Cardiovascular Function Stable: Yes Hydration Status Stable: Yes Pain Control Satisfactory: Yes Nausea and Vomiting Control Satisfactory: Yes Mental Status Recovered: Yes Vital Signs: Last Vital Signs Temp 37 C 09/12/19 10:49 Pulse 7 L 09/12/19 10:59 Resp 16 09/12/19 10:59 BP 105/56 L 09/12/19 10:59 Pulse Ox 97 09/12/19 10:59 - COMMENTS/OBSERVATIONS Free Text/Narrative:: No anesthesia problems
[2019-09-12 11:57] VITALS: BP 142/84; PULSE 64
--- NOTE | 2019-09-12 12:48 | OR ---
SURGEON: JAZMIN JONES MD DATE OF PROCEDURE: 09/12/2019 PREOPERATIVE DIAGNOSIS: History of rectal cancer. POSTOPERATIVE DIAGNOSIS: Normal colonoscopy. PROCEDURE PERFORMED: Diagnostic colonoscopy with biopsy. PRIMARY SURGEON: Jazmin Jones MD. ANESTHESIA: MAC. INSTRUMENT USED: Olympus colonoscope. EXTENT OF EXAM: To the cecum. PREPARATION: Good. LIMITATIONS: None. INDICATIONS FOR EXAMINATION: The patient is a 59-year-old female with a history of rectal cancer. 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 The patient and I discussed the need for a repeat diagnostic colonoscopy. I explained the procedure; expected perioperative course; and the risks including bleeding, infection, or damage to surrounding structures and including perforation. The patient verbalized understanding and wishes to proceed. PROCEDURE IN DETAIL: The patient was brought into the endoscopy suite and placed in a left lateral decubitus position. A time-out was completed verifying the patient's name, age, date of , allergies, and procedure to be performed. Monitored anesthesia care was induced and continuous oxygen was provided via nasal cannula throughout the procedure. After adequate sedation was achieved, a digital rectal exam was performed. This exam was within normal limits. A well-lubricated colonoscope was inserted in the rectum and advanced under direct visualization to the level of the cecum. The cecum was identified by both visual and anatomic landmarks. A photograph was taken of the cecal cap, but due to looping of the scope more proximally, I was unable to retroflex the scope within the cecum. The scope was then fully withdrawn while examining the color, texture, anatomy, and integrity of the mucosa from the cecum to the anal canal. The patient's colonic mucosa all appeared normal. I closely inspected the low-lying rectal anastomosis. I could see the staple line and this appeared normal. A biopsy was taken of this anyway and sent to Pathology, labeled as staple line biopsy. Given the low- lying anastomosis, I was unable to retroflex the scope within the rectal pouch, however, multiple photographs were taken as I slowly pulled the scope out. The patient's hemorrhoids appeared normal and there were no other abnormalities noted. The scope was removed and the procedure terminated. The cecum to anus time was 7 minutes. The patient tolerated the procedure well and was transferred to the PACU in stable condition. ENDOSCOPIC DIAGNOSIS: Normal colonoscopy. RECOMMENDATIONS: Follow up in clinic in 2 weeks to discuss the pathology results and to review the pictures. HUGO PAT /[id number]
== END 2019-09-12 11:40 | disposition home or self-care (01) ==
LOC: MW.SDS 08:37
PROVIDERS: ATTEND Surgery
DX: Z12.11 Encounter for screening for malignant neoplasm of colon (principal); K64.9 Unspecified hemorrhoids; M19.90 Unspecified osteoarthritis, unspecified site; E66.9 Obesity, unspecified; Z85.048 Personal history of other malignant neoplasm of rectum, rectosigmoid junction, and anus; Z85.038 Personal history of other malignant neoplasm of large intestine; Z88.2 Allergy status to sulfonamides; Z79.1 Long term (current) use of non-steroidal anti-inflammatories (NSAID); Z88.5 Allergy status to narcotic agent; Z87.891 Personal history of nicotine dependence; Z68.41 Body mass index [BMI] 40.0-44.9, adult; Z90.49 Acquired absence of other specified parts of digestive tract
CPT/HCPCS: 45380; J2001; J2704; J3010; J7120; 00811; 88305

== ENCOUNTER 2020-09-24 09:07 | Day surgery (SDC) | payer BC ==
[~2020-09-24 09:07] MED LIST changes: -Lidocaine 2% 5 ML SDV ONE; -Propofol 200 MG/20 ML SDV ONE; -fentaNYL 100 MCG/2 ML SDV ONE
--- NOTE | 2020-09-24 10:07 | PCM.PREANE ---
Preanesthetic Assessment - Anesthesia/Transfusion/Family Hx Anesthesia History: Prior Anesthesia Without Reaction Other Type of Anesthesia Reaction Comment: Denies any known problem with anesthesia in the past. Family History of Anesthesia Reaction: No Transfusion History: No Prior Transfusion(s) Intubation History: Unknown - Review of Systems General: No Symptoms Pulmonary: No Symptoms Cardiovascular: No Symptoms Gastrointestinal: No Symptoms Neurological: No Symptoms Other: Reports: None - Physical Assessment NPO Status Date: 09/23/20 Vital Signs: Last Vital Signs Temp 96.6 F L 09/24/20 09:18 Pulse 93 09/24/20 09:18 Resp 16 09/24/20 09:18 BP 142/78 H 09/24/20 09:18 Pulse Ox 95 09/24/20 09:18 Height: 5 ft 7 in Weight: 125.192 kg ASA Class: 2 Mental Status: Alert & Oriented x3 Airway Class: Mallampati = 2 Dentition: Reports: Normal Dentition ROM/Head Extension: Full Lungs: Clear to Auscultation, Normal Respiratory Effort Cardiovascular: Regular Rate, Regular Rhythm - Allergies Allergies/Adverse Reactions: Allergies Allergy/AdvReac Type Severity Reaction Status Date / Time morphine Allergy Nausea and Verified 09/18/20 10:21 Vomiting Sulfa (Sulfonamide Allergy Anaphylactic Verified 09/18/20 10:21 Antibiotics) Shock - Blood Blood Available: No - Anesthesia Plan Pre-Op Medication Ordered: None - Acknowledgements Anesthesia Type Planned: General Anesthesia (tiva) Pt an Appropriate Candidate for the Planned Anesthesia: Yes Alternatives and Risks of Anesthesia Discussed w Pt/Guardian: Yes Pt/Guardian Understands and Agrees with Anesthesia Plan: Yes PreAnesthesia Questionnaire - Past Health History Medical/Surgical History: Denies Medical/Surgical History HEENT History: Reports: Hard of Hearing, Impaired Vision, Other (See Below) Other HEENT History: wears glasses, 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 Cardiovascular History: Reports: None Respiratory History: Reports: None Gastrointestinal History: Reports: Other (See Below) Other Gastrointestinal History: hx of colon cancer '11 with colon resection and primary anastomosis Genitourinary History: Reports: None 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: , Other (See Below) Other OB/BYN History: hx of Endometrial Cancer 1A (s/p vaginal hysterectomy) Musculoskeletal History: Reports: Arthritis, Fracture, Neck Pain, Chronic Other Musculoskeletal History: fx left wrist, ?foot Neurological History: Reports: Other (See Below) Other Neuro History: hx of meningitis as a child Psychiatric History: Reports: None Endocrine/Metabolic History: Reports: Obesity/BMI 30+ Hematologic History: Reports: Anemia, Other (See Below) Other Hematologic History: states was diagnosed "yrs ago with mild thrombocytopenia" Immunologic History: Reports: None Oncologic (Cancer) History: Reports: Colon, Uterine Dermatologic History: Reports: None - Infectious Disease History Infectious Disease History: Reports: Chicken Pox - Past Surgical History Head Surgeries/Procedures: Reports: None HEENT Surgical History: Reports: None Cardiovascular Surgical History: Reports: None Respiratory Surgical History: Reports: None GI Surgical History: Reports: Appendectomy, Colon, Colonoscopy, Hernia, Inguinal Other GI Surgeries/Procedures: Partial Colectomy Female Surgical History: Reports: Section, Hysterectomy Other Female Surgeries/Procedures: x3 Endocrine Surgical History: Reports: None Neurological Surgical History: Reports: None Musculoskeletal Surgical History: Reports: None Oncologic Surgical History: Reports: Other (See Below) Other Oncologic Surgeries/Procedures: Partial Colectomy, LAVH Dermatological Surgical History: Reports: None - SUBSTANCE USE Tobacco Use Status *Q: Former Tobacco User Recreational Drug Use History: No - HOME MEDS Home Medications: Home Meds Polyethylene Glycol 3350 [MiraLAX] 1 tsp PO DAILY 11/12/15 [History] Acetaminophen [Tylenol Extra Strength] 2 tab PO ASDIRECTED PRN 09/06/19 [History] Cannabidiol (Cbd) Extract [CBD Oil] 1 dose TOP BID 09/06/19 [History] Naproxen Sodium [Aleve] 1 tab PO ASDIRECTED PRN 09/06/19 [History] Ascorbic Acid [Vitamin C] 1,000 mg PO DAILY 09/18/20 [History] C,E,Zinc,Copper 11/Vuuej4q/Lut [Ocuvite Adult 50 Plus Softgel] 1 cap PO DAILY 09/18/20 [History] Cholecalciferol (Vitamin D3) [Vitamin D3] 50,000 unit PO DAILY 09/18/20 [History] Lactobacill 46/B.animal/Inulin [Probiotic-10 10 Bill Cell Cap] 1 cap PO DAILY 09/18/20 [History] Magnesium Oxide/Magnesium [Magnesium] 300 mg PO DAILY 09/18/20 [History] Multivit-Min/Iron/Folic/Lutein [Centrum Silver Women Tablet] 1 tab PO DAILY 09/18/20 [History] Sertraline HCl 100 mg PO BEDTIME 09/18/20 [History] Vit A/Vit C/Vit E/Selenium Yst [Antioxidant Formula Tablet] 1 tab PO DAILY 09/18/20 [History] Vitamin B Complex 1 cap PO DAILY 09/18/20 [History] Vitamin K2 100 mcg PO DAILY 09/18/20 [History] - CURRENT (IN HOUSE) MEDS Current Meds: Current Medications Lactated Ringer's (Ringers, Lactated) 1,000 mls @ 125 mls/hr IV ASDIRECTED TALI Last Admin: 09/24/20 09:30 Dose: 125 mls/hr Documented by: Sodium Chloride (Saline Flush) 10 ml FLUSH ASDIRECTED PRN PRN Reason: Keep Vein Open Sodium Chloride (Saline Flush) 2.5 ml FLUSH ASDIRECTED PRN PRN Reason: Keep Vein Open Sodium Chloride (Saline Flush) 10 ml FLUSH ASDIRECTED PRN PRN Reason: Keep Vein Open Sodium Chloride (Saline Flush) 2.5 ml FLUSH ASDIRECTED PRN PRN Reason: Keep Vein Open Sodium Chloride (Normal Saline) 10 ml IV ASDIRECTED PRN PRN Reason: IV Use
[2020-09-24] MEDS ORDERED: Propofol 200 MG/20 ML SDV ONE (10:25)
--- NOTE | 2020-09-24 11:21 | PCM.OPNOTE ---
- General Post-Op/Procedure Note Date of Surgery/Procedure: 09/24/20 Operative Procedure(s): Diagnostic colonoscopy with polypectomy Findings: Transverse colon polyp. Normal appearing staple line. Pre Op Diagnosis: History of colon cancer Post-Op Diagnosis: Transverse colon polyp Anesthesia Technique: MAC Primary Surgeon: Jazmin Jones Condition: Good Free Text/Narrative:: Intake & Output 09/23/20 09/24/20 09/24/20 22:59 06:59 14:59 Intake Total 1400 Balance 1400
--- NOTE | 2020-09-24 11:37 | PCM.POSTAN ---
POST ANESTHESIA ASSESSMENT - MENTAL STATUS Mental Status: Alert, Oriented - VITAL SIGNS Vital Signs: Last Vital Signs Temp 98.2 F 09/24/20 11:06 Pulse 65 09/24/20 11:17 Resp 16 09/24/20 11:17 BP 123/65 09/24/20 11:17 Pulse Ox 96 09/24/20 11:17 - RESPIRATORY Respiratory Status: Respiratory Rate WNL, Airway Patent, O2 Saturation Stable - CARDIOVASCULAR CV Status: Pulse Rate WNL, Blood Pressure Stable - GASTROINTESTINAL GI Status: No Symptoms - POST OP HYDRATION Hydration Status: Adequate & Stable
--- NOTE | 2020-09-24 11:38 | PCM48HPAN ---
Post Anesthesia Note - EVALUATION WITHIN 48HRS OF ANESTHETIC Vital Signs in Normal Range: Yes Patient Participated in Evaluation: Yes Respiratory Function Stable: Yes Airway Patent: Yes Cardiovascular Function Stable: Yes Hydration Status Stable: Yes Pain Control Satisfactory: Yes Nausea and Vomiting Control Satisfactory: Yes Mental Status Recovered: Yes Vital Signs: Last Vital Signs Temp 98.2 F 09/24/20 11:06 Pulse 65 09/24/20 11:17 Resp 16 09/24/20 11:17 BP 123/65 09/24/20 11:17 Pulse Ox 96 09/24/20 11:17
[2020-09-24 11:40] VITALS: BP 126/76; PULSE 64
--- NOTE | 2020-09-24 11:58 | OR ---
SURGEON: JAZMIN JONES MD DATE OF PROCEDURE: 09/24/2020 PREOPERATIVE DIAGNOSIS: History of colon cancer. POSTOPERATIVE DIAGNOSIS: Transverse colon polyp. PROCEDURE PERFORMED: Diagnostic colonoscopy. PRIMARY SURGEON: Jazmin Jones MD ANESTHESIA: MAC. INSTRUMENT USED: Olympus colonoscope. EXTENT OF EXAM: To the cecum. PREPARATION: Good. LIMITATIONS: None. INDICATIONS FOR EXAMINATION: The patient is a 60-year-old female who has a history of colon cancer. 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 She has had no changes in her bowel habits, but is here for a repeat colonoscopy. The patient and I discussed the procedure, expected perioperative course, and the risks. She verbalized understanding and wishes to proceed. PROCEDURE IN DETAIL: The patient was brought into the endoscopy suite and placed in a left lateral decubitus position. A time-out was completed verifying the patient's name, age, date of , allergies, and procedure to be performed. Monitored anesthesia care was induced and continuous oxygen was provided via face mask throughout the procedure. After adequate sedation was achieved, a digital rectal exam was performed. This exam was within normal limits. A well-lubricated colonoscope was inserted in the rectum and advanced under direct visualization to the level of the cecum. The patient had a very redundant colon and this was somewhat difficult. I was able to reach the cecal cap and take a look within the cecum. A photograph was taken. I was unable to retroflex the scope within the cecum despite various position changes and manipulation due to the redundancy of the colon more proximally. The scope was then fully withdrawn while examining the color, texture, anatomy, and integrity of the mucosa from the cecum to the anal canal. The patient was noted to have a small sessile polyp within the mid transverse colon. This was removed in piecemeal fashion using cold biopsy forceps. The scope was then brought down to the distal sigmoid colon. At this level, I could identify the patient's previous staple line. There was no evidence of any recurrence in this area. Multiple photographs were taken. The scope was then brought into the rectum and gently retroflexed to allow visualization of the anal canal opening. This appeared normal and a photograph was taken. The scope was straightened out and fully withdrawn. The cecum to anus time was 8 minutes. The patient tolerated the procedure well and was transferred to the PACU in stable condition. ENDOSCOPIC DIAGNOSIS: Transverse colon polyp. RECOMMENDATIONS: Follow up in clinic in 2 weeks. HUGO PAT /[id number]
== END 2020-09-24 11:45 | disposition home or self-care (01) ==
LOC: MW.SDS 09:07
PROVIDERS: ATTEND Surgery
DX: Z12.11 Encounter for screening for malignant neoplasm of colon (principal); D12.3 Benign neoplasm of transverse colon; E66.9 Obesity, unspecified; Z85.038 Personal history of other malignant neoplasm of large intestine; Z80.0 Family history of malignant neoplasm of digestive organs; Z86.16 Personal history of COVID-19; Z88.2 Allergy status to sulfonamides; Z90.49 Acquired absence of other specified parts of digestive tract; Z98.890 Other specified postprocedural states; Z87.891 Personal history of nicotine dependence; Z88.5 Allergy status to narcotic agent; Z68.41 Body mass index [BMI] 40.0-44.9, adult; Z98.0 Intestinal bypass and anastomosis status; Z79.899 Other long term (current) drug therapy
CPT/HCPCS: 45380; 88305; J2704; J7120; 00811

== ENCOUNTER 2021-10-07 09:13 | Day surgery (SDC) | payer BC ==
[~2021-10-07 09:13] MED LIST changes: +Lidocaine 1% 5 ML VIAL ONE; +Propofol 200 MG/20 ML SDV ONE; -Sodium Chloride 0.9% 10 ML SDV IV PRN; +Sodium Chloride 0.9% 20 ML SDV IV PRN; +fentaNYL 100 MCG/2 ML SDV ONE
[2021-10-07] MEDS ORDERED: Propofol 200 MG/20 ML SDV ONE (10:52)
[2021-10-07 11:42] VITALS: BP 148/70; PULSE 66
== END 2021-10-07 11:43 | disposition home or self-care (01) ==
LOC: MW.SDS 09:13
PROVIDERS: ATTEND Surgery
DX: Z12.11 Encounter for screening for malignant neoplasm of colon (principal); F41.9 Anxiety disorder, unspecified; D64.9 Anemia, unspecified; E66.9 Obesity, unspecified; Z68.42 Body mass index [BMI] 45.0-49.9, adult; Z88.2 Allergy status to sulfonamides; Z88.6 Allergy status to analgesic agent; Z90.49 Acquired absence of other specified parts of digestive tract; Z98.890 Other specified postprocedural states; Z90.711 Acquired absence of uterus with remaining cervical stump; Z79.899 Other long term (current) drug therapy; Z85.038 Personal history of other malignant neoplasm of large intestine; Z80.0 Family history of malignant neoplasm of digestive organs; Z87.891 Personal history of nicotine dependence
CPT/HCPCS: 45378; J2704; J3010; J7120; 00812

== ENCOUNTER 2022-11-05 07:49 | Day surgery (SDC) | payer BC ==
[~2022-11-05 07:49] MED LIST changes: -Lidocaine 1% 5 ML VIAL ONE; -Propofol 200 MG/20 ML SDV ONE; -fentaNYL 100 MCG/2 ML SDV ONE
[2022-11-05] MEDS ORDERED: Propofol 200 MG/20 ML SDV ONE ×2 (08:11→09:37)
[2022-11-05 12:42] VITALS: BP 138/71; PULSE 61
== END 2022-11-05 10:35 | disposition home or self-care (01) ==
LOC: MW.SDS 07:49
PROVIDERS: ATTEND Surgery
DX: Z08 Encounter for follow-up examination after completed treatment for malignant neoplasm (principal); Z85.038 Personal history of other malignant neoplasm of large intestine; Z98.0 Intestinal bypass and anastomosis status; F41.9 Anxiety disorder, unspecified; F32.A Depression, unspecified; Z79.899 Other long term (current) drug therapy; Z80.0 Family history of malignant neoplasm of digestive organs; Z87.891 Personal history of nicotine dependence; Z88.5 Allergy status to narcotic agent; Z88.2 Allergy status to sulfonamides; Z90.49 Acquired absence of other specified parts of digestive tract; Z86.010 Personal history of colon polyps
CPT/HCPCS: 45378; J2704; J7120

== ENCOUNTER 2024-10-17 09:29 | Day surgery (SDC) | payer BC ==
[~2024-10-17 09:29] MED LIST changes: -Lactated Ringers 1,000 ML IV SCH
[2024-10-17] MEDS: Lactated Ringers 1,000 ML IV SCH (10:23)
[2024-10-17] MEDS ORDERED: propofoL 500 MG/50 ML 50 ML ONE (12:22)
[2024-10-17] MEDS ORDERED: Glycopyrrolate 0.2 MG/ML SDV ONE (12:28)
[2024-10-17] MEDS ORDERED: Lidocaine 2% 5 ML SDV ONE (13:01)
[2024-10-17 13:56] VITALS: BP 123/75; PULSE 70
== END 2024-10-17 14:00 | disposition home or self-care (01) ==
LOC: MW.SDS 09:29
PROVIDERS: ATTEND Surgery
DX: Z12.11 Encounter for screening for malignant neoplasm of colon (principal); I10 Essential (primary) hypertension; E66.01 Morbid (severe) obesity due to excess calories; Z88.5 Allergy status to narcotic agent; Z88.2 Allergy status to sulfonamides; Z86.0100 Personal history of colon polyps, unspecified; Z85.038 Personal history of other malignant neoplasm of large intestine; Z79.899 Other long term (current) drug therapy; Z68.43 Body mass index [BMI] 50.0-59.9, adult; Z87.891 Personal history of nicotine dependence
CPT/HCPCS: 45378; J2003; J2704; J7120; 00811; J1596